=== PATIENT | female | born 1930 | race Caucasian/White ===

== ENCOUNTER 2018-03-08 10:56 | Emergency (ER) | payer MEDICARE, MEDICAID ==
[~2018-03-08] VITALS: Ht 160 cm; Wt 70.0 kg
[~2018-03-08 10:56] MED LIST: ASCO500C15 PO; ASPI-611 PO; ATOR40TA PO; CLON-529 PO; CRAN1TAB3 PO; LACT1CAP65 PO; METO100T14 PO; NIA500ERT PO; OMEP20TA23 PO; SITA25TA3 PO; SYN0.088T PO; calcium PO
[2018-03-08 11:48] LABS: BASOPHILS % (AUTO) 0.5 % (0-1); EOSINOPHILS # (AUTO) 0.2 X10'3 (0-0.9); EOSINOPHILS % (AUTO) 2.4 % (0-6); HEMATOCRIT 39.2 % (35.0-45.0); HEMOGLOBIN 13.2 g/dl (12.0-16.0); LYMPHOCYTES # (AUTO) 1.3 X10'3 (1.1-4.8); LYMPHOCYTES % (AUTO) 14.5 % (21-51); MEAN CORPUSCULAR HEMOGLOBIN 30.1 PG (27.0-31.0); MEAN CORPUSCULAR HGB CONC 33.7 % (33.0-36.5); MEAN CORPUSCULAR VOLUME 89.1 FL (78-98); MEAN PLATELET VOLUME 8.7 FL (7.4-10.4); MONOCYTES # (AUTO) 0.8 X10'3 (0-0.9); MONOCYTES % (AUTO) 8.4 % (2-12); NEUTROPHILS # (AUTO) 6.8 X10'3 (1.8-7.7); NEUTROPHILS % (AUTO) 74.2 % (42-75); PLATELET COUNT 246 X10'3 (140-440); RED CELL DISTRIBUTION WIDTH 15.4 % (11.5-14.5); WHITE BLOOD COUNT 9.2 X10'3 (4.5-11.0)
[2018-03-08 12:01] LABS: ALANINE AMINOTRANSFERASE 20 U/L (12-78); ALBUMIN 2.8 G/DL (3.4-5.0); ALBUMIN/GLOBULIN RATIO 0.8 (1.1-1.5); ALKALINE PHOSPHATASE 91 IU/L (46-116); ANION GAP 7 (8-16); ASPARTATE AMINO TRANSFERASE 18 U/L (10-37); BILIRUBIN,TOTAL 0.5 MG/DL (0.1-1.0); BLOOD UREA NITROGEN 21 MG/DL (7-18); BUN/CREATININE RATIO 14.5 (6.6-38.0); CALCIUM 9.2 MG/DL (8.5-10.1); CHLORIDE 101 MMOL/L (99-107); CREATININE 1.45 MG/DL (0.40-0.90); GLUCOSE 117 MG/DL (70-104); SODIUM 134 MMOL/L (135-145); TOTAL CARBON DIOXIDE 25.9 MMOL/L (24-32); TOTAL PROTEIN 6.5 G/DL (6.4-8.2); eGFR 34 ML/MIN
[2018-03-08 12:14] LABS: PARTIAL THROMBOPLASTIN TIME 30 SECONDS (22-32); PROTHROMBIN TIME 10.5 SECONDS (9.0-12.0)
[2018-03-08 12:43] LABS: CLARITY,URINE SLIGHTLY CLOUDY (Clear); COLOR,URINE YELLOW (Yellow); GLUCOSE, URINE NEGATIVE (Neg); KETONES,URINE NEGATIVE (Neg); LEUKOCYTE ESTERASE ,URINE TRACE (Neg); NITRITES, URINE NEGATIVE (Neg); OCCULT BLOOD,URINE NEGATIVE (Neg); PROTEIN,URINE TRACE mg/dl (Neg); UROBILINOGEN,URINE 0.2 E.U/dL (0.2-1.0)
[2018-03-08 12:58] LABS: UA COLLECTION TYPE CLN CATCH MIDSTREAM
[2018-03-08 13:00] LABS: RBC,URINE NONE SEEN /HPF (0-2)
[2018-03-08 13:01] LABS: BACTERIA,URINE 4+ /HPF (Neg); WBC CLUMPS,URINE FEW /HPF (NEGATIVE)
[2018-03-08 13:03] LABS: SQUAMOUS EPITHELIAL CELL,UR MODERATE /LPF (FEW)
[2018-03-08 13:13] VITALS: BP 165/89
[2018-03-08 14:21] LABS: OCCULT BLOOD STOOL NEGATIVE (Neg)
== END 2018-03-08 13:56 | disposition home or self-care (01) ==
LOC: ER 10:56
DX: R19.5 Other fecal abnormalities (principal); K92.1 Melena; R60.0 Localized edema; M19.90 Unspecified osteoarthritis, unspecified site; G89.29 Other chronic pain; Z90.49 Acquired absence of other specified parts of digestive tract; Z88.1 Allergy status to other antibiotic agents; Z88.8 Allergy status to other drugs, medicaments and biological substances; Z79.82 Long term (current) use of aspirin; Z79.899 Other long term (current) drug therapy
CPT/HCPCS: 36415; 71045; 80053; 81001; 82272; 85025; 85610; 85730; 86885; 86900; 86901; 87077; 87088; 87186; 93005; 99285; J7030

== ENCOUNTER 2020-08-29 10:06 | Inpatient (IN) | payer MEDICARE, MEDICAID ==
[~2020-08-29] VITALS: Ht 160 cm; Wt 78.8 kg
[~2020-08-29 10:06] MED LIST changes: -ASCO500C15 PO; +ASCO500C18 PO
[2020-08-29 11:37] LABS: BASOPHILS # (AUTO) 0.1 X10'3 (0-0.2); BASOPHILS % (AUTO) 0.7 % (0-1); EOSINOPHILS # (AUTO) 0.2 X10'3 (0-0.9); EOSINOPHILS % (AUTO) 2.5 % (0-6); HEMATOCRIT 38.5 % (35.0-45.0); HEMOGLOBIN 12.7 g/dl (12.0-16.0); LYMPHOCYTES % (AUTO) 13.4 % (21-51); MEAN CORPUSCULAR HEMOGLOBIN 29.5 PG (27.0-31.0); MEAN CORPUSCULAR HGB CONC 33.1 g/dL (33.0-36.5); MEAN CORPUSCULAR VOLUME 89.3 FL (78-98); MEAN PLATELET VOLUME 8.8 FL (7.4-10.4); MONOCYTES # (AUTO) 0.7 X10'3 (0-0.9); MONOCYTES % (AUTO) 9.5 % (2-12); NEUTROPHILS # (AUTO) 5.7 X10'3 (1.8-7.7); NEUTROPHILS % (AUTO) 73.9 % (42-75); PLATELET COUNT 315 X10'3 (140-440); RED BLOOD COUNT 4.31 X10'6 (4.20-5.60); RED CELL DISTRIBUTION WIDTH 14.6 % (11.5-14.5); WHITE BLOOD COUNT 7.7 X10'3 (4.5-11.0)
[2020-08-29 11:43] LABS: ALANINE AMINOTRANSFERASE 19 U/L (12-78); ALBUMIN 3.3 G/DL (3.4-5.0); ALBUMIN/GLOBULIN RATIO 0.7 (1.1-1.5); ALKALINE PHOSPHATASE 95 IU/L (46-116); ANION GAP 7 (8-16); ASPARTATE AMINO TRANSFERASE 21 U/L (10-37); BILIRUBIN,TOTAL 0.6 MG/DL (0.1-1.0); BLOOD UREA NITROGEN 30 MG/DL (7-18); BUN/CREATININE RATIO 14.4 (6.6-38.0); CHLORIDE 94 MMOL/L (99-107); CREATININE 2.09 MG/DL (0.40-0.90); GLUCOSE 199 MG/DL (70-104); POTASSIUM 4.1 MMOL/L (3.5-5.1); SODIUM 128 MMOL/L (135-145); TOTAL CARBON DIOXIDE 26.9 MMOL/L (24-32); TOTAL PROTEIN 8.1 G/DL (6.4-8.2); eGFR 22 ML/MIN
[2020-08-29 12:10] LABS: CLARITY,URINE CLOUDY (Clear); COLOR,URINE STRAW (Yellow); GLUCOSE, URINE NEGATIVE (Neg); KETONES,URINE NEGATIVE (Neg); LEUKOCYTE ESTERASE ,URINE MODERATE (Neg); NITRITES, URINE NEGATIVE (Neg); OCCULT BLOOD,URINE SMALL (Neg); PROTEIN,URINE TRACE mg/dl (Neg); UROBILINOGEN,URINE 0.2 E.U/dL (0.2-1.0)
[2020-08-29 12:16] LABS: UA COLLECTION TYPE CLN CATCH MIDSTREAM
[2020-08-29 12:20] LABS: SQUAMOUS EPITHELIAL CELL,UR FEW /LPF (FEW)
[2020-08-29 12:21] LABS: TRANSITIONAL EPI CELLS,URINE FEW /HPF
[2020-08-29 12:23] LABS: RBC,URINE 0-2 /HPF (0-2)
[2020-08-29 12:26] LABS: BACTERIA,URINE 4+ /HPF (Neg)
[2020-08-29] MEDS ORDERED: CefTRIAXone 2gm/D5W 50ml BAG 50 ML IV ONE (13:15)
[2020-08-29] MEDS ORDERED: APIX2.5T PO (14:01)
[2020-08-29] MEDS ORDERED: AMLO5TAB16 PO (14:01)
[2020-08-29] MEDS ORDERED: ANAS1TAB10 PO (14:01)
[2020-08-29] MEDS ORDERED: FURO40TA4 PO (14:01)
[2020-08-29] MEDS ORDERED: ALEN70TA80 PO (14:01)
[2020-08-29] MEDS ORDERED: CALC500T63 PO (14:10)
[2020-08-29] MEDS ORDERED: LEVO100T PO (14:10)
[2020-08-29] MEDS ORDERED: magnesium 2GM in 50ml NS 50 ML IV PRN (15:05)
[2020-08-29] MEDS ORDERED: morphine 2 MG/ML inj. syringe IV PRN (15:05)
[2020-08-29] MEDS ORDERED: magnesium Cl slow-release 64mg tablet PO PRN (15:05)
[2020-08-29] MEDS ORDERED: potassium Cl 40MEQ/1/2NS 520ml 520 ML IV PRN ×2 (15:05)
[2020-08-29] MEDS ORDERED: potassium Cl 20 mEq SR tablet PO PRN ×2 (15:05)
[2020-08-29] MEDS ORDERED: ondansetron/PF 4mg/2ml inj IV PRN (15:05)
[2020-08-29] MEDS ORDERED: magnesium 4gm in 100ml NS 100 ML IV PRN (15:05)
[2020-08-29] MEDS ORDERED: acetaminophen 325mg tablet PO PRN ×2 (15:05)
[2020-08-29 16:12] LABS: HEMOGLOBIN A1C 6.9 % (4.5-6.2)
[2020-08-29] MEDS: normal saline 1000ml 1,000 ML IV SCH (18:01)
[2020-08-29] MEDS: pantoprazole 40MG/NS 100ML BAG 100 ML IV SCH ×2 (18:02→21:00)
[2020-08-29 18:39] LABS: BASOPHILS # (AUTO) 0.1 X10'3 (0-0.2); BASOPHILS % (AUTO) 0.7 % (0-1); EOSINOPHILS # (AUTO) 0.1 X10'3 (0-0.9); EOSINOPHILS % (AUTO) 0.7 % (0-6); HEMATOCRIT 40.9 % (35.0-45.0); HEMOGLOBIN 13.6 g/dl (12.0-16.0); LYMPHOCYTES # (AUTO) 1.1 X10'3 (1.1-4.8); LYMPHOCYTES % (AUTO) 8.4 % (21-51); MEAN CORPUSCULAR HEMOGLOBIN 28.9 PG (27.0-31.0); MEAN CORPUSCULAR HGB CONC 33.3 g/dL (33.0-36.5); MEAN CORPUSCULAR VOLUME 86.8 FL (78-98); MEAN PLATELET VOLUME 8.4 FL (7.4-10.4); MONOCYTES # (AUTO) 0.9 X10'3 (0-0.9); MONOCYTES % (AUTO) 6.4 % (2-12); NEUTROPHILS # (AUTO) 11.3 X10'3 (1.8-7.7); NEUTROPHILS % (AUTO) 83.8 % (42-75); PLATELET COUNT 307 X10'3 (140-440); RED BLOOD COUNT 4.71 X10'6 (4.20-5.60); RED CELL DISTRIBUTION WIDTH 14.3 % (11.5-14.5); WHITE BLOOD COUNT 13.5 X10'3 (4.5-11.0)
[2020-08-29] MEDS: K and/or MAG REPLACEMENT MC SCH (19:48)
[2020-08-29] MEDS: cloNIDine 0.1 mg tablet PO SCH (20:53)
[2020-08-29] MEDS: atorvastatin 20mg tablet PO SCH (20:53)
[2020-08-29] MEDS: metoprolol tartrate 50mg tablet PO SCH (20:54)
[2020-08-29 22:00] VITALS: BP 155/84
[2020-08-30] MEDS: pantoprazole 40MG/NS 100ML BAG 100 ML IV SCH ×5 (01:58→20:10)
[2020-08-30 02:00] VITALS: BP 122/60
[2020-08-30] MEDS: normal saline 1000ml 1,000 ML IV SCH ×2 (05:53→20:11)
--- NOTE | 2020-08-30 06:04 | NUR ---
Problems reprioritized. Patient report given, questions answered & plan of care reviewed with Shabana KUO.
[2020-08-30 06:53] LABS: BASOPHILS % (AUTO) 0.3 % (0-1); EOSINOPHILS # (AUTO) 0.1 X10'3 (0-0.9); EOSINOPHILS % (AUTO) 0.6 % (0-6); HEMATOCRIT 33.9 % (35.0-45.0); HEMOGLOBIN 11.4 g/dl (12.0-16.0); LYMPHOCYTES # (AUTO) 1.1 X10'3 (1.1-4.8); MEAN CORPUSCULAR HEMOGLOBIN 29.4 PG (27.0-31.0); MEAN CORPUSCULAR HGB CONC 33.8 g/dL (33.0-36.5); MEAN CORPUSCULAR VOLUME 87.1 FL (78-98); MEAN PLATELET VOLUME 8.5 FL (7.4-10.4); MONOCYTES # (AUTO) 0.6 X10'3 (0-0.9); MONOCYTES % (AUTO) 6.9 % (2-12); NEUTROPHILS # (AUTO) 7.2 X10'3 (1.8-7.7); NEUTROPHILS % (AUTO) 80.2 % (42-75); PLATELET COUNT 275 X10'3 (140-440); RED BLOOD COUNT 3.89 X10'6 (4.20-5.60); RED CELL DISTRIBUTION WIDTH 14.4 % (11.5-14.5)
[2020-08-30 06:57] VITALS: BP 136/65
[2020-08-30 07:04] LABS: ALANINE AMINOTRANSFERASE 19 U/L (12-78); ALBUMIN 2.7 G/DL (3.4-5.0); ALBUMIN/GLOBULIN RATIO 0.7 (1.1-1.5); ALKALINE PHOSPHATASE 67 IU/L (46-116); ANION GAP 7 (8-16); ASPARTATE AMINO TRANSFERASE 17 U/L (10-37); BILIRUBIN,TOTAL 0.6 MG/DL (0.1-1.0); BLOOD UREA NITROGEN 29 MG/DL (7-18); BUN/CREATININE RATIO 14.6 (6.6-38.0); CALCIUM 9.6 MG/DL (8.5-10.1); CHLORIDE 101 MMOL/L (99-107); CREATININE 1.98 MG/DL (0.40-0.90); GLUCOSE 140 MG/DL (70-104); MAGNESIUM 1.9 MG/DL (1.5-2.4); POTASSIUM 3.9 MMOL/L (3.5-5.1); SODIUM 137 MMOL/L (135-145); TOTAL PROTEIN 6.8 G/DL (6.4-8.2); eGFR 24 ML/MIN
[2020-08-30] MEDS: lactobacillus rhamnosus 10,000 MMU CELLS/CAPSULE PO SCH (07:47)
[2020-08-30] MEDS: CefTRIAXone 2gm/D5W 50ml BAG 50 ML IV SCH (07:47)
[2020-08-30] MEDS: levoTHYROXINE 100mcg tablet PO SCH (07:47)
[2020-08-30] MEDS: furosemide 40mg tablet PO SCH (07:48)
[2020-08-30] MEDS: metoprolol tartrate 50mg tablet PO SCH ×2 (07:48→20:10)
[2020-08-30] MEDS: K and/or MAG REPLACEMENT MC SCH ×2 (08:00→20:00)
[2020-08-30] MEDS: anastrozole 1 MG tablet PO SCH (08:20)
[2020-08-30] MEDS ORDERED: PEG 3350/Na sulf,bicarb,Cl/KCl oral sol 4 liter bottle PO ONE (09:40)
[2020-08-30 10:05] LABS: OCCULT BLOOD STOOL POSITIVE (Neg)
[2020-08-30 11:38] VITALS: BP 135/69
[2020-08-30 15:08] VITALS: BP 158/68
--- NOTE | 2020-08-30 18:17 | NUR ---
Patient in room PCU 3024. I have received report from Shabana KUO and had the opportunity to ask questions and assume patient care.
[2020-08-30] MEDS: docusate sod 100mg capsule PO SCH (20:11)
[2020-08-30] MEDS: cloNIDine 0.1 mg tablet PO SCH (20:11)
[2020-08-30] MEDS: atorvastatin 20mg tablet PO SCH (20:11)
[2020-08-31] MEDS: pantoprazole 40MG/NS 100ML BAG 100 ML IV SCH ×5 (01:00→22:46)
--- NOTE | 2020-08-31 06:50 | NUR ---
Patient in room PCU 3024. I have received report from SHIELA Olmstead and had the opportunity to ask questions and assume patient care.
[2020-08-31 07:00] VITALS: BP 157/79
[2020-08-31 07:29] LABS: BASOPHILS # (AUTO) 0.1 X10'3 (0-0.2); BASOPHILS % (AUTO) 0.8 % (0-1); EOSINOPHILS # (AUTO) 0.2 X10'3 (0-0.9); EOSINOPHILS % (AUTO) 2.7 % (0-6); HEMATOCRIT 32.2 % (35.0-45.0); HEMOGLOBIN 10.8 g/dl (12.0-16.0); LYMPHOCYTES # (AUTO) 1.1 X10'3 (1.1-4.8); LYMPHOCYTES % (AUTO) 13.7 % (21-51); MEAN CORPUSCULAR HEMOGLOBIN 29.8 PG (27.0-31.0); MEAN CORPUSCULAR HGB CONC 33.7 g/dL (33.0-36.5); MEAN CORPUSCULAR VOLUME 88.3 FL (78-98); MEAN PLATELET VOLUME 8.3 FL (7.4-10.4); MONOCYTES # (AUTO) 0.6 X10'3 (0-0.9); MONOCYTES % (AUTO) 6.9 % (2-12); NEUTROPHILS # (AUTO) 6.3 X10'3 (1.8-7.7); NEUTROPHILS % (AUTO) 75.9 % (42-75); PLATELET COUNT 262 X10'3 (140-440); RED BLOOD COUNT 3.64 X10'6 (4.20-5.60); RED CELL DISTRIBUTION WIDTH 14.5 % (11.5-14.5); WHITE BLOOD COUNT 8.3 X10'3 (4.5-11.0)
[2020-08-31 07:48] LABS: ALANINE AMINOTRANSFERASE 18 U/L (12-78); ALBUMIN 2.5 G/DL (3.4-5.0); ALBUMIN/GLOBULIN RATIO 0.7 (1.1-1.5); ALKALINE PHOSPHATASE 61 IU/L (46-116); ANION GAP 9 (8-16); ASPARTATE AMINO TRANSFERASE 22 U/L (10-37); BILIRUBIN,TOTAL 0.5 MG/DL (0.1-1.0); BLOOD UREA NITROGEN 23 MG/DL (7-18); BUN/CREATININE RATIO 14.2 (6.6-38.0); CALCIUM 9.2 MG/DL (8.5-10.1); CHLORIDE 106 MMOL/L (99-107); CREATININE 1.62 MG/DL (0.40-0.90); GLUCOSE 135 MG/DL (70-104); MAGNESIUM 1.8 MG/DL (1.5-2.4); POTASSIUM 3.7 MMOL/L (3.5-5.1); SODIUM 141 MMOL/L (135-145); TOTAL CARBON DIOXIDE 26.5 MMOL/L (24-32); TOTAL PROTEIN 6.1 G/DL (6.4-8.2); eGFR 30 ML/MIN
[2020-08-31] MEDS: CefTRIAXone 2gm/D5W 50ml BAG 50 ML IV SCH (07:58)
[2020-08-31] MEDS: K and/or MAG REPLACEMENT MC SCH ×2 (08:00→20:00)
[2020-08-31] MEDS: furosemide 40mg tablet PO SCH (08:03)
[2020-08-31] MEDS: lactobacillus rhamnosus 10,000 MMU CELLS/CAPSULE PO SCH (08:04)
[2020-08-31] MEDS: levoTHYROXINE 100mcg tablet PO SCH (08:04)
[2020-08-31] MEDS: metoprolol tartrate 50mg tablet PO SCH ×2 (08:04→21:07)
[2020-08-31] MEDS: docusate sod 100mg capsule PO SCH ×2 (08:07→20:00)
[2020-08-31] MEDS: anastrozole 1 MG tablet PO SCH (08:08)
--- NOTE | 2020-08-31 09:50 | NUR ---
PAGER ID: [phone] MESSAGE: Cassandra/Tele [phone]. Pt Michi. RM: 3024-A Pt finished first gallon of GolIntrovision R&Dly still having brown stools. Can she get an order for another gallon? thanks. Colonoscopy possibly be done tomorrow if stools dont clear out.
[2020-08-31] MEDS: normal saline 1000ml 1,000 ML IV SCH (10:04)
[2020-08-31] MEDS ORDERED: PEG 3350/Na sulf,bicarb,Cl/KCl oral sol 4 liter bottle PO ONE (12:05)
[2020-08-31 12:22] VITALS: BP 130/73
[2020-08-31] MEDS: HYDROcodone/acetaminophen 5mg/325mg tablet PO PRN ×2 (13:44→21:38)
[2020-08-31 16:02] VITALS: BP 156/80
[2020-08-31 18:00] VITALS: BP 153/77
--- NOTE | 2020-08-31 18:30 | NUR ---
Patient in room PCU 3024. I have received report from OTILIA and had the opportunity to ask questions and assume patient care.
--- NOTE | 2020-08-31 18:35 | NUR ---
Pt continues on Golytely, Colonoscopy will be done tomorrow. Patient report given, questions answered & plan of care reviewed with SHIELA Tijerina.
[2020-08-31] MEDS: atorvastatin 20mg tablet PO SCH (21:07)
[2020-08-31] MEDS: cloNIDine 0.1 mg tablet PO SCH (21:07)
[2020-08-31 22:00] VITALS: BP 137/65
[2020-09-01] VITALS (8 sets, daily range): BP systolic 110–155; BP diastolic 58–82
[2020-09-01] MEDS: normal saline 1000ml 1,000 ML IV SCH (00:44)
[2020-09-01] MEDS: pantoprazole 40MG/NS 100ML BAG 100 ML IV SCH ×2 (01:00→04:18)
--- NOTE | 2020-09-01 06:28 | NUR ---
Problems reprioritized. Patient report given, questions answered & plan of care reviewed with
--- NOTE | 2020-09-01 06:40 | NUR ---
Patient in room PCU 3024. I have received report from Sulma KUO and had the opportunity to ask questions and assume patient care.
[2020-09-01 06:52] LABS: ALANINE AMINOTRANSFERASE 17 U/L (12-78); ALBUMIN 2.4 G/DL (3.4-5.0); ALBUMIN/GLOBULIN RATIO 0.7 (1.1-1.5); ALKALINE PHOSPHATASE 57 IU/L (46-116); ANION GAP 8 (8-16); ASPARTATE AMINO TRANSFERASE 31 U/L (10-37); BASOPHILS # (AUTO) 0.1 X10'3 (0-0.2); BASOPHILS % (AUTO) 0.7 % (0-1); BILIRUBIN,TOTAL 0.4 MG/DL (0.1-1.0); BLOOD UREA NITROGEN 18 MG/DL (7-18); BUN/CREATININE RATIO 10.8 (6.6-38.0); CALCIUM 8.9 MG/DL (8.5-10.1); CHLORIDE 109 MMOL/L (99-107); CREATININE 1.67 MG/DL (0.40-0.90); EOSINOPHILS # (AUTO) 0.1 X10'3 (0-0.9); EOSINOPHILS % (AUTO) 1.8 % (0-6); GLUCOSE 128 MG/DL (70-104); HEMATOCRIT 31.6 % (35.0-45.0); HEMOGLOBIN 10.5 g/dl (12.0-16.0); LYMPHOCYTES # (AUTO) 0.8 X10'3 (1.1-4.8); LYMPHOCYTES % (AUTO) 10.4 % (21-51); MAGNESIUM 1.7 MG/DL (1.5-2.4); MEAN CORPUSCULAR HEMOGLOBIN 29.9 PG (27.0-31.0); MEAN CORPUSCULAR HGB CONC 33.4 g/dL (33.0-36.5); MEAN CORPUSCULAR VOLUME 89.4 FL (78-98); MEAN PLATELET VOLUME 8.4 FL (7.4-10.4); MONOCYTES # (AUTO) 0.6 X10'3 (0-0.9); MONOCYTES % (AUTO) 7.9 % (2-12); NEUTROPHILS # (AUTO) 6.1 X10'3 (1.8-7.7); NEUTROPHILS % (AUTO) 79.2 % (42-75); PLATELET COUNT 236 X10'3 (140-440); POTASSIUM 3.4 MMOL/L (3.5-5.1); RED BLOOD COUNT 3.53 X10'6 (4.20-5.60); RED CELL DISTRIBUTION WIDTH 14.6 % (11.5-14.5); SODIUM 144 MMOL/L (135-145); TOTAL CARBON DIOXIDE 27.4 MMOL/L (24-32); WHITE BLOOD COUNT 7.7 X10'3 (4.5-11.0); eGFR 29 ML/MIN
[2020-09-01] MEDS ORDERED: fentaNYL/PF 50MCG/1 ML 2ML syringe ONE (06:54)
[2020-09-01] MEDS ORDERED: MIDAZolam 1 MG/ML 5ML VIAL ONE (06:54)
--- NOTE | 2020-09-01 07:22 | NUR ---
Re: Room 3024A, per report pt to have colonoscopy at 0700. Wondering what time pt will have this done, so I know whether to give a.m. meds. Thank you, Malena (page sent to GI) Will continue to monitor.
[2020-09-01] MEDS: K and/or MAG REPLACEMENT MC SCH (08:00)
[2020-09-01] MEDS: docusate sod 100mg capsule PO SCH (08:00)
--- NOTE | 2020-09-01 10:15 | NUR ---
Pt back in room 3024A from GI lab procedure. Pt A&Ox4, no c/o, no s/sx distress, VSS, PIV S/L flushed without difficulty, gag reflex patent. Will continue to monitor.
--- NOTE | 2020-09-01 10:50 | NUR ---
PAGER ID: [phone] MESSAGE: re; [phone], Elizabeth Borden Pt is back in her room from . [facility] [phone] will continue to monitor.
[2020-09-01] MEDS: levoTHYROXINE 100mcg tablet PO SCH (11:12)
[2020-09-01] MEDS: lactobacillus rhamnosus 10,000 MMU CELLS/CAPSULE PO SCH (11:12)
[2020-09-01] MEDS: furosemide 40mg tablet PO SCH (11:12)
[2020-09-01] MEDS: metoprolol tartrate 50mg tablet PO SCH (11:12)
[2020-09-01] MEDS: CefTRIAXone 2gm/D5W 50ml BAG 50 ML IV SCH (11:13)
[2020-09-01] MEDS: anastrozole 1 MG tablet PO SCH (11:13)
--- NOTE | 2020-09-01 11:30 | NUR ---
Per Dr Gutierrez, do no restart Protonblu silva MD planning on d/c'g pt. Will continue to monitor.
[2020-09-01] MEDS ORDERED: DOCU100C40 PO (12:44)
[2020-09-01] MEDS ORDERED: CIPR250T4 PO (12:55)
--- NOTE | 2020-09-01 13:49 | NUR ---
PAGER ID: [phone] MESSAGE: re: [phone], Elizabeth Borden Please call: pt's K+ is 3.4 this a.m. do you want replaced before discharge? Pt tolerated her full liquid diet. Thank you, Malena [facility] [phone] Received phone call from Dr Gutierrez - orders received. Give K+ PO and continue to monitor patient for one hour before discharging.
[2020-09-01] MEDS ORDERED: potassium Cl 20 mEq SR tablet PO STA (13:52)
--- NOTE | 2020-09-01 17:45 | NUR ---
Pt stable and appropriate for discharge. PIV d/c'd cannula intact. Tele monitor removed. Reviewed with pt and pt's family member all d/c instructions and meds, with pt/family given opportunity to ask questions, answers provided and pt/family verbalizing understanding. Prescriptions escripted to pharmacy of choice. Pt to call and schedule followup appt with PCP within one week. Pt/family verbalized understanding to call PCP with any questions/concerns or s/sx of complications or return to nearest ED. Pt escorted to front lobby by staff member with pt stating she had all personal belongings. Pt d/c'd home in private vehicle driven by family member.
[2020-09-01] MEDS ORDERED: pantoprazole 40mg Tablet.DR PO SCH (20:00)
== END 2020-09-01 17:45 | disposition home or self-care (01) | DRG 394 ==
LOC: ER 10:07 → ED HOLD 15:02 → PCU 3S 21:07
PROVIDERS: ADMIT Internal Medicine; ATTEND Internal Medicine
PROC: C713YZZ Planar Nuclear Medicine Imaging of Blood using Other Radionuclide (ICD-10-PCS; principal; 2020-08-29)
PROC: 0DBH8ZZ Excision of Cecum, Via Natural or Artificial Opening Endoscopic (ICD-10-PCS; 2020-09-01)
DX: K64.8 Other hemorrhoids (principal); E87.1 Hypo-osmolality and hyponatremia; N18.4 Chronic kidney disease, stage 4 (severe); N30.01 Acute cystitis with hematuria; E03.9 Hypothyroidism, unspecified; F41.9 Anxiety disorder, unspecified; G89.29 Other chronic pain; C50.919 Malignant neoplasm of unspecified site of unspecified female breast; R73.03 Prediabetes; M19.90 Unspecified osteoarthritis, unspecified site; M54.9 Dorsalgia, unspecified; E78.00 Pure hypercholesterolemia, unspecified; K63.5 Polyp of colon; I25.10 Atherosclerotic heart disease of native coronary artery without angina pectoris; I50.9 Heart failure, unspecified; Z79.01 Long term (current) use of anticoagulants; Z79.811 Long term (current) use of aromatase inhibitors; Z90.49 Acquired absence of other specified parts of digestive tract; Z95.0 Presence of cardiac pacemaker; Z83.3 Family history of diabetes mellitus; Z91.018 Allergy to other foods
CPT/HCPCS: 36415; 45385; 71045; 78278; 80053; 81001; 82272; 82948; 83036; 83735; 84443; 85025; 85610; 86885; 86900; 86901; 87077; 87081; 87088; 87186; 93005; 96365; 97110; 97116; 97162; 99152; 99153; 99285; A4620; A9560; C1773; C9113; G0378; J0696; J2250; J3010; J7030; J7040